=== PATIENT | female | born 1975 | race Caucasian/White ===

== ENCOUNTER 2023-12-30 14:58 | Outpatient (CLI) | payer OTHER, SELFPAY ==
[2023-12-30 18:26] LABS: Basophils # 0.1 K/mm3 (0-0.2); Basophils % 0.7 % (0.1-2.0); Eosinophils # 0.1 K/mm3 (0.0-0.4); Eosinophils % 1.2 % (0.1-12.0); Hematocrit 41.8 % (37.0-47.0); Lymphocytes # 2.2 K/mm3 (0.7-4.5); Lymphocytes % 23.5 % (10-50); Mean Corpuscular HGB Conc 35.8 g/dL (31.8-35.4); Mean Corpuscular Hemoglobin 32.5 pg (27.0-31.2); Mean Corpuscular Volume 90.7 fl (81-99); Mean Platelet Volume 8.3 fl (7.4-10.4); Monocytes # 0.6 K/mm3 (0.1-1.0); Monocytes % 6.1 % (1.7-9.3); Neutrophils # 6.5 K/mm3 (1.8-7.8); Neutrophils % 68.5 % (37.0-80.0); Platelet Count 257 K/mm3 (142-424); White Blood Count 9.5 K/mm3 (4.8-10.8)
[2023-12-30 18:43] LABS: Albumin Level 4.3 g/dl (3.5-5.0); Chloride 104 mmol/L (98-107); Potassium 4.3 mmoL/L (3.5-5.1); Sodium 138 mmol/L (136-145)
[2023-12-30 18:45] LABS: Alanine Aminotransferase 48 U/L (12-78); Anion Gap 12.3 mEq/L (5-15); Aspartate Amino Transferase 35 U/L (14-36); Blood Urea Nitrogen 8 mg/dl (7-17); Carbon Dioxide 26 mmol/L (22.0-30.0); Estimated Glomerular Filt Rate 90 ml/min (>60); GFR (African American) 109 ML/MIN (>60)
[2023-12-30 18:46] LABS: Albumin/Globulin Ratio 1.7 (1.1-1.8); Alkaline Phosphatase 57 U/L (38-126); Bilirubin,Total 0.7 mg/dl (0.2-1.3); Calcium 9.4 mg/dl (8.4-10.2); Chol/HDL Ratio 7.4 (1-3.5); Cholesterol 215 mg/dl (140-200); Globulin 2.6 g/dL (1.3-3.2); Glucose 147 mg/dl (74-100); HDL Cholesterol 29 mg/dl (40-60); Total Protein,Serum 6.9 g/dl (6.3-8.2); Triglycerides 286 mg/dl (30-150); VLDL Cholesterol 57 mg/dL (0-40)
[2023-12-30 18:57] LABS: Direct LDL Cholesterol 134.96 mg/dL (100-129)
[2023-12-30 19:00] LABS: 25-OH Vitamin D, Total 36.1 ng/mL (30-100)
[2023-12-30 19:15] LABS: Thyroid Stimulating Hormone 0.69 uIU/mL (0.465-4.68)
[2023-12-30 19:41] LABS: HIV (1&2) Antibody Rapid NONREACTIVE (NONREACTIVE)
[2024-01-01 08:25] LABS: HCV Ab Non Reactive (Non Reactive)
== END 2023-12-30 23:59 | disposition home or self-care (01) ==
LOC: LAB.DROPOF 12-31 12:52
PROVIDERS: PCP Family Medicine; Visit Provider Family Medicine
DX: Z00.00 Encounter for general adult medical examination without abnormal findings (principal); Z76.89 Persons encountering health services in other specified circumstances; I10 Essential (primary) hypertension; K21.9 Gastro-esophageal reflux disease without esophagitis; I49.3 Ventricular premature depolarization; J30.2 Other seasonal allergic rhinitis; E66.9 Obesity, unspecified
CPT/HCPCS: 80050; 80053; 80061; 82306; 84443; 85025; 86803; 87389

== ENCOUNTER 2024-02-27 15:25 | Outpatient (CLI) | payer OTHER, SELFPAY ==
[2024-02-27 18:25] LABS: Coronavirus 19, PCR Not Detected (NotDetected); Influenza B, PCR Not Detected (NotDetected)
[2024-02-27 21:05] LABS: Influenza A, PCR Detected (NotDetected)
== END 2024-02-27 23:59 | disposition home or self-care (01) ==
LOC: LAB.DROPOF 03-02 09:52
PROVIDERS: PCP Family Medicine; Visit Provider Family Medicine
DX: J02.9 Acute pharyngitis, unspecified (principal); J09.X9 Influenza due to identified novel influenza A virus with other manifestations; F17.200 Nicotine dependence, unspecified, uncomplicated
CPT/HCPCS: 87636

== ENCOUNTER 2024-04-08 09:06 | Outpatient (CLI) | payer OTHER, SELFPAY | END 2024-04-08 23:59 | disposition home or self-care (01) | LOC: LAB.DROPOF 04-10 09:09 | PROVIDERS: PCP Family Medicine; Visit Provider Family Medicine | DX: R39.9 Unspecified symptoms and signs involving the genitourinary system (principal) | CPT/HCPCS: 87086 ==

== ENCOUNTER 2025-02-09 13:11 | Outpatient (CLI) | payer OTHER, SELFPAY | END 2025-02-09 23:59 | disposition home or self-care (01) | LOC: LAB.DROPOF 02-11 13:11 | PROVIDERS: PCP Family Medicine; Visit Provider Student in an Organized Health Care Education/Training Program | DX: N39.0 Urinary tract infection, site not specified (principal) | CPT/HCPCS: 87086 ==